=== PATIENT | male | born 1975 | race American Indian/Alaskan Native ===

== ENCOUNTER 2016-08-26 08:37 | Emergency (ER) | payer OTHER ==
[2016-08-26 08:58] VITALS: BP 137/95
[2016-08-26 09:25] LABS: Basophils % (Auto) 1.2 % (0.0-1.8); Eosinophils % (Auto) 2.7 % (0.0-4.3); Hematocrit 43.5 % (35.5-45.6); Hemoglobin 14.5 gm/dl (11.8-15.2); Mean Corpuscular HGB Conc 33 % (32-34); Mean Corpuscular Hemoglobin 31 pg (28-32); Mean Corpuscular Volume 93 fl (84-94); Platelet Count 211 K/mm3 (140-440); Red Cell Distribution Width 13.7 % (13.2-15.2)
[2016-08-26 09:34] LABS: INR 0.86 (0.87-1.13)
[2016-08-26 09:35] LABS: Partial Thromboplastin Time 31.8 Sec. (24.2-36.6)
[2016-08-26 09:39] LABS: Anion Gap 18 mmol/L; BUN/Creatinine Ratio 11.81; Blood Urea Nitrogen 13 mg/dL (9-20); Calcium 9.4 mg/dL (8.4-10.2); Carbon Dioxide 25 mmol/L (22-30); Chloride 102.7 mmol/L (98-107); Glucose 142 mg/dL (75-100); Sodium 142 mmol/L (137-145)
--- NOTE | 2016-08-27 07:13 | ED Elopement Review ---
ED Pt Elopement review - Results review Lab results: Laboratory Tests 08/26/16 08/26/16 08/26/16 09:07 09:07 09:07 WBC 6.0 RBC 4.70 Hgb 14.5 Hct 43.5 MCV 93 MCH 31 MCHC 33 RDW 13.7 Plt Count 211 Lymph % (Auto) 37.9 H [place] % (Auto) 8.5 H Eos % (Auto) 2.7 Baso % (Auto) 1.2 Lymph # 2.3 [place] # 0.5 Eos # 0.2 Baso # 0.1 Seg Neutrophils % 49.7 Seg Neutrophils # 3.0 PT 11.6 L INR 0.86 L APTT 31.8 Sodium 142 Potassium 4.0 Chloride 102.7 Carbon Dioxide 25 Anion Gap 18 BUN 13 Creatinine 1.1 Estimated GFR > 60 BUN/Creatinine Ratio 11.81 Glucose 142 H Calcium 9.4 Troponin T < 0.010 08/26/16 12:11 WBC RBC Hgb Hct MCV MCH MCHC RDW Plt Count Lymph % (Auto) [place] % (Auto) Eos % (Auto) Baso % (Auto) Lymph # [place] # Eos # Baso # Seg Neutrophils % Seg Neutrophils # PT INR APTT Sodium Potassium Chloride Carbon Dioxide Anion Gap BUN Creatinine Estimated GFR BUN/Creatinine Ratio Glucose Calcium Troponin T < 0.010 - Call Back decision Pt Call Back Decision: No action required
== END 2016-08-26 09:30 | disposition left against medical advice (07) ==
LOC: ED 08:37
DX: R07.89 Other chest pain (principal); R06.02 Shortness of breath; Z53.21 Procedure and treatment not carried out due to patient leaving prior to being seen by health care provider
CPT/HCPCS: 36415; 80048; 84484; 85025; 85610; 85730; 93005; 93010